=== PATIENT | female | born 1975 | race Caucasian/White ===

== ENCOUNTER 2019-08-28 11:25 | Emergency (ER) | payer SELFPAY ==
[~2019-08-28] VITALS: Ht 165 cm; Wt 81.9 kg
--- NOTE | 2019-08-28 11:52 | ED GU-Female ---
General Chief Complaint: - Urinary Stated Complaint: BLOOD IN URINE Source: patient Exam Limitations: no limitations History of Present Illness Date Seen by Provider: Aug 28, 2019 Time Seen by Provider: 11:40 Initial Comments 44-year-old female who presents to the emergency room with complaints of intermittent blood in her urine. She reports she has also been feeling poorly believe she has a urinary tract infection. Last March she did have a stent placed for kidney stones and reports that she has a large stone in her left kidney. She reports that she has been previously seen at [facility] for her kidney stones. She denies fevers, nausea, vomiting, diarrhea. Timing/Duration: getting worse, intermittent Radiation: back Allergies and Home Medications Patient Home Medication List Home Medication List Reviewed: Yes Review of Systems Review of Systems Constitutional: see HPI; No chills, No fever; malaise Genitourinary: see HPI, dysuria, hematuria All Other Systemes Reviewed Negative Unless Noted: Yes Past Tcthgcp-Ogfolf-Fxtbdl Hx Past Med/Social Hx: Reviewed Nursing Past Med/Soc Hx Patient Social History Recent Foreign Travel: No Contact w/Someone Who Travel: No Family Medical History Reviewed Nursing Family Hx Physical Exam Vital Signs Vital Signs - First Documented 08/28/19 11:33 Temp 35.8 Pulse 89 Resp 18 B/P (MAP) 127/94 (105) Pulse Ox 97 Capillary Refill : Height, Weight, BMI Height: '" Weight: lbs. oz. kg; BMI Method: General Appearance: WD/WN, no apparent distress Cardiovascular: normal peripheral pulses, regular rate, rhythm, no edema, no gallop, no JVD, no murmur Respiratory: chest non-tender, lungs clear, normal breath sounds, no respiratory distress, no accessory muscle use, respiratory distress Gastrointestinal: normal bowel sounds, non tender, soft, no organomegaly, no pulsatile mass Extremities: normal range of motion, normal capillary refill Neurologic/Psychiatric: alert, normal mood/affect, oriented x 3 Skin: normal color, warm/dry Progress/Results/Core Measures Suspected Sepsis SIRS Temperature: Pulse: Respiratory Rate: Blood Pressure / Mean: Results/Orders Lab Results Laboratory Tests Test 08/28/19 11:47 Range/Units Urine Color YELLOW Urine Clarity VERY CLOUDY H Urine pH 8 5-9 Urine Specific Howe 1.010 L 1.016-1.022 Urine Protein 2+ H NEGATIVE Urine Glucose (UA) NEGATIVE NEGATIVE Urine Ketones NEGATIVE NEGATIVE Urine Nitrite POSITIVE H NEGATIVE Urine Bilirubin NEGATIVE NEGATIVE Urine Urobilinogen NORMAL NORMAL MG/DL Urine Leukocyte Esterase 3+ H NEGATIVE Urine RBC (Auto) 4+ H NEGATIVE Urine RBC 50-100 H /HPF Urine WBC TNTC H /HPF Urine Squamous Epithelial Cells 5-10 /HPF Urine Crystals NONE /LPF Urine Bacteria MODERATE H /HPF Urine Casts NONE /LPF Urine Mucus NEGATIVE /LPF Urine Culture Indicated YES My Orders Orders - AIRAM GATES Ua Culture If Indicated (08/28/19 11:38) Urine Culture (08/28/19 11:47) Vital Signs/I&O 08/28/19 11:33 Temp 35.8 Pulse 89 Resp 18 B/P (MAP) 127/94 (105) Pulse Ox 97 Capillary Refill : Progress Note : Time: 12:24 Progress Note I have seen and evaluated the patient. I've informed her of her laboratory findings. She will be started on Macrobid and culture. She was instructed to follow up with primary care and establish. She agrees with plan. Plans for discharge, return precautions were given. Departure Impression Primary Impression: Urinary tract infection Disposition: HOME, SELF-CARE Condition: Stable/Unchanged Departure-Patient Inst. Decision time for Depature: 12:25 Referrals: NO,LOCAL PHYSICIAN (PCP/Family) Primary Care Physician Patient Instructions: LOCAL PHYSICIAN LIST, Urinary Tract Infection, Adult (DC) Add. Discharge Instructions: Take medication as directed. You may use Azo [id number] as directed by the packaging. Tylenol Motrin as needed for pain. Drink plenty of water to stay hydrated and to flush out your kidneys. Follow-up with a primary care provider of your choosing. Return back to the emergency room for worsening symptoms or concerns as needed. All discharge instructions reviewed with patient and/or family. Voiced understanding. Scripts Nitrofurantoin Monohyd/M-Cryst (Macrobid 100 mg Capsule) 100 Mg Capsule 1 TAB PO BID for 7 Days, #14 CAP Prov: AIRAM GATES 08/28/19 AIRAM GATES Aug 28, 2019 11:52 POS
[2019-08-28 11:53] LABS: BILIRUBIN,URINE NEGATIVE (NEGATIVE); CLARITY,URINE VERY CLOUDY; COLOR,URINE YELLOW; GLUCOSE, URINE (UA) NEGATIVE (NEGATIVE); KETONES,URINE NEGATIVE (NEGATIVE); LEUKOCYTE ESTERASE ,URINE 3+ (NEGATIVE); NITRITE,URINE POSITIVE (NEGATIVE); PH,URINE 8 (5-9); PROTEIN,URINE 2+ (NEGATIVE)
[2019-08-28 12:12] LABS: WBC,URINE TNTC /HPF
[2019-08-28 12:18] LABS: BACTERIA,URINE MODERATE /HPF; RBC,URINE 50-100 /HPF
[2019-08-28] MEDS ORDERED: NITR-65 PO (12:35)
[2019-08-28 12:51] VITALS: BP 127/94
== END 2019-08-28 12:44 | disposition home or self-care (01) ==
LOC: ER 11:26
DX: N39.0 Urinary tract infection, site not specified (principal)
CPT/HCPCS: 81000; 87088; 99282